=== PATIENT | female | born 1980 | race Caucasian/White ===

== ENCOUNTER 2016-11-08 05:57 | Day surgery (SDC) ==
[2016-11-01 15:06] LABS: URINE SOURCE CLEAN CATCH
[2016-11-01 15:16] LABS: HEMATOCRIT 40.6 % (37.0-47.0); HEMOGLOBIN 13.9 g/dL (12.0-16.0); MCHC 34.2 g/dL (33-37); MCV 90.4 FL (81-99); MPV 9.8 FL (7.4-10.4); RBC 4.49 XMIL (4.2-5.4)
[2016-11-01 15:19] LABS: BILIRUBIN URINE NEGATIVE (NEGATIVE); BLOOD URINE NEGATIVE (NEGATIVE); CLARITY CLEAR (CLEAR); COLOR YELLOW; GLUCOSE URINE NEGATIVE (NEGATIVE); LEUKOCYTES URINE NEGATIVE (NEGATIVE); NITRITE URINE NEGATIVE (NEGATIVE); PH URINE 6.5; PROTEIN URINE NEGATIVE (NEGATIVE); UROBILINOGEN URINE 0.2 EU/dL (0.2-1.0)
[2016-11-01 15:41] LABS: URINE RBC <10 /HPF (<10); URINE WBC <10 /HPF (<10)
[2016-11-01 15:42] LABS: URINE EPITHELIAL CELLS >10 /HPF (<10)
[2016-11-08] MEDS ORDERED: REGLAN ONE (06:02)
[2016-11-08] MEDS ORDERED: PEPCID ONE (06:02)
[2016-11-08] MEDS ORDERED: KEFZOL 1 GM/D5W 50 ML ONE (06:03)
[2016-11-08] MEDS ORDERED: TRANSDERM-SCOP ONE (06:03)
[2016-11-08] MEDS ORDERED: LR 1,000 ML ONE (06:03)
[2016-11-08] MEDS ORDERED: LOVENOX ONE (06:03)
[2016-11-08] MEDS ORDERED: BACITRACIN ONE (06:18)
[2016-11-08] MEDS ORDERED: EXPAREL 1.3% ONE (06:18)
[2016-11-08] MEDS ORDERED: NS 250 ML ONE (06:18)
[2016-11-08] MEDS: KEFZOL 1 GM/D5W 50 ML ONE ×2 (10:30→11:08)
[2016-11-08] MEDS: DILAUDID ONE ×2 (11:15→11:21)
[2016-11-08] MEDS ORDERED: NEOSTIGMINE ONE (11:48)
[2016-11-08] MEDS ORDERED: LR 3,000 ML ONE (11:49)
[2016-11-08] MEDS ORDERED: ROBINUL ONE (11:49)
[2016-11-08] MEDS ORDERED: ZOFRAN ONE (11:49)
[2016-11-08] MEDS ORDERED: XYLOCAINE-MPF 2% ONE (11:49)
[2016-11-08] MEDS ORDERED: ZEMURON ONE (11:49)
[2016-11-08] MEDS ORDERED: DECADRON ONE (11:49)
[2016-11-08] MEDS ORDERED: DIPRIVAN 1% ONE (11:54)
[2016-11-08] MEDS ORDERED: FENTANYL ONE (11:54)
[2016-11-08] MEDS ORDERED: PHENERGAN ONE (11:56)
[2016-11-08] MEDS ORDERED: NORCO-10 ONE ×2 (11:57→15:27)
--- NOTE | 2016-11-08 13:26 | OPERATIVE NOTE ---
PROCEDURE DATE: 11/08/2016 PROCEDURE: Abdominoplasty with muscle plication. SURGEON: Dr. Kylah MD ICD-10 DIAGNOSIS CODE: Z41.1. [place] [address]-I cosmetic abdominoplasty. INDICATION FOR PROCEDURE: This patient is a 35-year-old white female who is known to my practice who has had 2 pregnancies and she is thin so it really stretched out her abdomen. She has weak muscle and stretched out skin. She is an excellent candidate for an abdominoplasty to fix this. She was seen in the office for informed consent on 11/01/2016. At that point, she understood that she would have an abdominoplasty and the goal of the procedure was to excise and tighten the extra skin, and then plicate her underlying muscles. She understood the risks include infection, blood loss, blood clots in legs, heart problems, lung problems, allergic reactions, or blood and serum collections in the operative sites that might require drainage. She understands exact size and shape cannot be guaranteed as with nonoperative abdomens, there can be some asymmetry from side to side. She knows her skin incisions will be from waist to waist and around the umbilicus that is where the scars will be. She understands we will use her old umbilicus and bring it through a new hole. She understands her lower abdomen will be numb for a year to year and a half for the nerves to grow in, and she cannot do any strenuous lifting or strenuous exercise for 6-8 weeks because of the muscle repair. She knows she cannot have a breast reconstruction with a TRAM flap. She knows it is cosmetic surgery and does not go to her insurance company. DESCRIPTION OF PROCEDURE: The patient was brought to the operating after she was marked in outpatient surgery in the standing position. She went to the operating room and had general anesthesia and was prepped and draped. The crucial corners of markings were tattooed with methylene blue and then she was put in a flexed position and the exact lin were remarked and assessed. The upper incision was made first with a with a knife and then electrocautery to dissect up towards the level of the xiphoid. She was put in a flexed position. The ability to reach the lower incision was confirmed. The lower incision was then made with a knife, and then dissected with electrocautery and the skin was removed from lateral to medial, cutting around the umbilicus with a 15 blade. The muscles were then plicated in the midline with #1 Maxon stitches. The umbilicus was tagged superiorly with silk suture. She had Exparel injected into the muscles and subcutaneous tissue for postoperative pain control. Then she was irrigated with bacitracin solution. She was tacked closed over 3 drains and then had liposuction done of the corners of the incisions and the mons pubis area. She was closed with 2-0 Polysorb interrupted sutures in the subcutaneous tissue. Running 3-0 Polysorb deep dermal suture, followed by running 4-0 Biosyn subcuticular stitch. The drains were secured with silk drain stitches. The umbilicus was brought through a round hole and fixed in position with 5-0 Polysorb interrupted deep dermal sutures, followed by 5-0 nylon stitches. Prior to closing, she had liposuction done of the flanks and after she was completely closed she had a small amount liposuction done of the inner thighs through 2 stab incisions in the thigh. She tolerated the procedure very well. The total amount of resection of the abdominal weight was 515 g. Total liposuction was 275 mL. She tolerated the procedure well and was transferred to the recovery room in good condition.
[2016-11-08] MEDS ORDERED: LR 500 ML ONE (15:37)
[2016-11-08 17:29] VITALS: BP 111/71
== END 2016-11-08 17:32 | disposition home or self-care (01) ==
LOC: OPS 05:57
PROVIDERS: ATTEND Surgery Plastic and Reconstructive Surgery
DX: Z41.1 Encounter for cosmetic surgery (principal)
CPT/HCPCS: 81001; 81025; 85027; 88300; C9290; J0690; J1100; J1170; J1650; J2405; J3010; J7050; J7120; J2710